=== PATIENT | female | born 1995 | race American Indian/Alaskan Native ===

== ENCOUNTER 2017-07-07 18:26 | Inpatient (IN) | payer MEDICAID ==
[2017-07-07] MEDS ORDERED: Ondansetron 4 MG/2 ML SDV IV PRN (19:11)
[2017-07-07] MEDS ORDERED: Methylergonovine 0.2 MG/1 ML Amp IM PRN (19:11)
[2017-07-07] MEDS ORDERED: Carboprost Tromethamine 250 MCG/1 ML Amp IM PRN (19:11)
[2017-07-07] MEDS ORDERED: Acetaminophen 325 MG Tab PO PRN (19:11)
[2017-07-07] MEDS ORDERED: Misoprostol 400 MCG (4 X 100 MCG TAB) RECTAL PRN (19:11)
[2017-07-07] MEDS ORDERED: fentaNYL 100 MCG/2 ML SDV IVPUSH PRN (19:11)
[2017-07-07] MEDS ORDERED: Sodium Chloride 0.9% 10 ML Syringe FLUSH PRN (19:11)
[2017-07-07] MEDS ORDERED: Lidocaine 1% 30 ML SDV INJECT PRN (19:11)
[2017-07-07] MEDS ORDERED: Lactated Ringers 500 ML IV ONE (19:11)
[2017-07-07] MEDS: Lactated Ringers 1,000 ML IV SCH ×2 (19:20→20:32)
[2017-07-07] MEDS ORDERED: Oxytocin/Normal Saline 30 UNIT/500 ML BAG IV SCH (21:15)
--- NOTE | 2017-07-07 21:45 | PCM.SN ---
- Free Text/Narrative Note: Intrathecal. Sitting position, sterile prep and drape. 1 % lidocaine w bicarb for skin wheal to L3 L4 interspace x 2. Introducer x 2. Pos CSF, neg heme, neg parasthesia. 15 mcg PF sufenta, 35 mcg PF fentanyl, 0.4 ml PF NS and 6 mg of 0.75 % PF bupivacaine injected after CSF aspiration. Pt to L lateral position. Procedure time 2104 to 2129
[2017-07-07] MEDS ORDERED: Simethicone 80 MG Tab.Chew PO PRN (23:04)
[2017-07-07] MEDS ORDERED: Docusate Sodium 100 MG Cap PO PRN (23:04)
[2017-07-07] MEDS ORDERED: Benzocaine/Menthol 20%-0.5% Spray 56 GM Canister TOP PRN (23:04)
[2017-07-07] MEDS ORDERED: Promethazine 25 MG/ML SDV IM PRN (23:29)
--- NOTE | 2017-07-07 23:44 | DEL ---
DATE: 07/07/2017 PREPROCEDURE DIAGNOSES: 1. A 36 and 4/7 weeks' gestation via LMP and 20-week ultrasound. 2. 4, para 0-2-1-2. 3. High-risk . 4. History of severe preeclampsia 2 prior pregnancies with deliveries including one complicated by placental abruption. 5. History of miscarriage. 6. History of ectopic with salpingectomy. 7. Anemia of . 8. Protein malnutrition. 9. Short interval . 10.Second trimester complicated by bacterial vaginosis, urinary tract infection, and vaginal bleeding. 11.High tone pelvic floor dysfunction. 12.Blood type O positive, rubella immune, and group B strep negative. POSTPROCEDURE DIAGNOSES: 1. A 36 and 4/7 weeks' gestation via LMP and 20-week ultrasound. 2. 4, now para 0-3-1-3. 3. High-risk . 4. History of severe preeclampsia 2 prior pregnancies with deliveries including one complicated by placental abruption. 5. History of miscarriage. 6. History of ectopic with salpingectomy. 7. Anemia of . 8. Protein malnutrition. 9. Short interval . 10.Second trimester complicated by bacterial vaginosis, urinary tract infection, and vaginal bleeding. 11.High tone pelvic floor dysfunction. 12.Blood type O positive, rubella immune, and group B strep negative. 13.Status post spontaneous vaginal delivery with superficial bilateral anterior lacerations. BRIEF HISTORY: A 22-year-old female, admitted to the hospital on day of delivery after presenting with spontaneous onset of labor at 10:00 a.m. started having regular contractions at 5:00 a.m., they became painful and closer together and then she presented after 7:00 for evaluation. Labor continued to progress without any augmentation and an intrathecal was provided for anesthesia at 8+ cm of dilatation. After that, artificial rupture of membranes was performed and once complete, she pushed for only a couple of contractions and had her delivery. Laboratory testing and blood pressure criteria were not met for preeclampsia with this . She was noted to be on aspirin for preventative measures. PROCEDURE IN DETAIL: The patient in dorsal lithotomy position, she delivered a viable male infant over an intact perineum. Infant was dried and stimulated. Pocket of fluid in the cheek was suctioned out with bulb suction. Three-vessel umbilical cord was then doubly clamped and cut and baby was taken to the warmer for further evaluation. Cord blood sample was obtained and then placenta delivered by gentle cord traction and concomitant uterine massage, inspected and intact. Gross appearance consistent with 36+ weeks' gestation. Inspection of labia and vagina showed a superficial posterior tear of just the keratinized skin and did not go any deeper. There were bilateral anterior lacerations that were hemostatic and did not need repair. They were quite small. DISPOSITION: Mother and baby to stay in the room at this time so they could start bonding. ESTIMATED BLOOD LOSS: 350 mL. COMPLICATIONS: None. FINDINGS: Viable male infant. scores of 8 and 9. Weight 3465 grams, 7# 10oz. Length 19.5. [facility] /[id number] MTDTala
--- NOTE | 2017-07-08 01:02 | HP ---
CHIEF COMPLAINT: Increased worsening frequency of contractions and leakage of fluid. HISTORY OF PRESENT ILLNESS: A 22-year-old 4, para 0-2-1-2. The patient with a complaint of mitch every 3-1/2 to 4 minutes since approximately 10:00 this morning. Also noticed some pink, watery discharge when she wiped. Has not soaked to her underwear but reports that they have been damp. Tells us that at about 5:00 this evening, contractions got worse and she started feeling them more into her back. They have not gotten any e mail system administrator. She denies any obvious symptoms of preeclampsia other than the shortness of breath that she has been complaining of for a couple of weeks. Denies any other specific complaints at this time. HISTORY: 1. Delivered on 06/06/2013, 36-week gestation, female infant, vaginal delivery, named Benjamin Nicole. Weight 2659 g under epidural for anesthesia. scores of 8 and 8, approximately 7 hours of stage I. She was in induction of labor for severe preeclampsia and had been transferred from [place] to [place] and delivered by Dr. Fernandez. 2. Delivered in 2014, ectopic requiring surgery for resolution. 3. Delivered 08/03/2016 at 32 weeks 6 days' gestation, male infant, delivered vaginally. His name is Karlos Nicole. weight 2120 g. Labor complication was placental abruption, also had severe preeclampsia, approximately 8 hours of stage I, estimated in 6 minutes of stage II. scores were 7 and 9. The patient had presented to the hospital at 6 cm dilated and delivered quickly after artificial rupture of membranes as the team was setting up for primary . After delivery, placenta appeared to have about one-sixth of the total space occupied by abruptio. Delivering physician, Dr. Michel. CARE: 1. Blood type is O positive. UDS was negative in [place]. RPR nonreactive. Rubella immune. Hepatitis C and B negative. HIV negative. Gonorrhea and Chlamydia negative. Tdap and flu vaccines were given on 05/05/2017. Group B strep test is negative. 2. Other factors, high-tone pelvic floor dysfunction, treated for bacterial vaginosis at 26 weeks. Diagnosed with protein malnutrition and diagnosed to a lapper and started on Ensure at 26 weeks. Urinary tract infection in the second trimester, treated with nitrofurantoin. She has had a short interval of her pregnancies, vaginal bleeding in the second trimester, and evaluated here at [facility] approximately at 20 weeks. However, the patient left before the entire evaluation was completed. History of labor x2 as outlined above. Prior deliveries were early because of preeclampsia complications and not inherent labor. Therefore, cervical length ultrasounds and hydroxyprogesterone were not indicated. History of ectopic . PAST MEDICAL HISTORY: Body piercing, severe preeclampsia. PAST SURGICAL HISTORY: Ectopic treated with laparoscopic salpingectomy. FAMILY HISTORY: Mother alive and well. Father with diabetes, hypertension. Sister and brother each with autism. A sister with ADHD and 2 sisters are alive and well and another sister with autism. Maternal grandparents are not known to her. Paternal grandmother has no known diseases and paternal grandfather has had stroke and heart disease. Negative family history for defects, anesthesia problems, bleeding problems, clotting disorders, multiple births, cystic fibrosis and seizures. SOCIAL HISTORY: The patient is single. She is a former smoker and quit in 2011. History of alcohol use in the past and was hospitalized once for alcohol intoxication. She is now expecting baby #3 with her boyfriend, Senior Jewel. He is not working. Andie is going to school to get her GED. They live with Karlos's mother and her children. Karlos's mother smokes inside the home. REVIEW OF SYSTEMS: Denies any chest pain, headaches, blurry vision, right upper quadrant pain, acute change in her swelling, numbness, tingling, fever, chills, diarrhea, constipation, or dysuria. PHYSICAL EXAMINATION: Vital Signs: Can be reviewed on the monitoring strip. HEENT: Grossly unremarkable. Heart: Regular without obvious murmur. Lungs: Clear to auscultation bilaterally. Abdomen: Gravid, soft, and nontender. Fundal height consistent with dates. Butters is showing baseline heart tones. monitoring strip is category 1 tracing. Butters shows contractions approximately every 2 to 3 minutes. Cervix is 5 to 6 cm dilated, 90% effaced, midpositioned, mushy with consistency. Bag of water is intact. Extremities: Trace edema. No erythema or tenderness noted. Neurological: No focal deficits. LABORATORY DATA: No labs resulted as of yet. ASSESSMENT: 1. labor in a 4, para 0-2-1-2 at 36 and 4/7 weeks' gestation. 2. History of severe preeclampsia prior to pregnancies. 3. Protein malnutrition. 4. History of ectopic . 5. Generally high-risk . 6. Anemia of . 7. Short interval between pregnancies. 8. History of vaginal bleeding in the second trimester. 9. Urinary tract infection in the second trimester. 10.Bacterial vaginosis in the late second trimester. 11.High-tone pelvic floor dysfunction. PLAN: The patient will be admitted to Labor and Delivery. Hopefully, she will be able to get an intrathecal for anesthesia; however, we are getting ready to go to the operating room with an acute case, and the patient will need to wait until anesthesia is available. I anticipate vaginal delivery as she has had in the past. We will continue to also monitor for any signs and symptoms of preeclampsia. The patient is agreeable with the plan and aware that she is at increased risk because she is . Her questions were answered and she is agreeing to proceed. [facility] /[id number] GEO
--- NOTE | 2017-07-08 08:31 | PN ---
DATE: 07/08/2017 SUBJECTIVE: day #1, 22-year-old 4, now para 0-3-1-3, spontaneous vaginal delivery just before midnight last night without complications. Reports that she has been doing well since the time of delivery. Saddle block has worn off, and she has been up to go to the bathroom and that went well and voiding without difficulties. Not yet had a bowel movement. No chest pain or shortness of breath. Continues to complain of itching from the intrathecal, but no preeclamptic symptoms are reported. Bleeding is as would be expected. Denies significant cramping. Reports that she wants to try , but has not been making very much effort at that yet. OBJECTIVE: Vital Signs: Pulse of 75, blood pressure 133/74, and respiratory rate of 16. Heart: Regular without obvious murmur. Lungs: Clear to auscultation bilaterally. Abdomen: Soft and nontender. Fundus is firm and below the umbilicus. Extremities: Trace to no edema. No erythema or tenderness noted. Neurological: No focal deficits. ASSESSMENT: 1. day #1, status post uncomplicated vaginal delivery. 2. History of severe preeclampsia with 2 prior pregnancies, not diagnosed this , and was on aspirin for prophylaxis. 3. Anemia of . 4. Short interval . 5. Protein malnutrition. PLAN: Anticipate at this time to continue normal cares and monitoring for signs and symptoms for development of preeclampsia . Discussed with the patient that her son will need to stay in the hospital probably at least until 48 hours of age due to prematurity status, and anticipate that she will be staying through that time as well. Advised that Dr. Jo will be following her through discharge, and I will see her next week in the office for blood pressure recheck when she brings her son in for a well- child check. [facility] /[id number]
[2017-07-08] MEDS: Prenatal Multivitamin with Calcium/Folic Acid/Iron Tab PO SCH (09:39)
[2017-07-08] MEDS: Ibuprofen 800 MG Tab PO PRN ×2 (14:28→23:13)
[2017-07-08] MEDS ORDERED: fentaNYL 100 MCG/2 ML SDV ITHECAL ONE (16:15)
[2017-07-08] MEDS: Ferrous Sulfate 325 MG Tab PO SCH (19:22)
[2017-07-09 08:27] VITALS: BP 118/71
--- NOTE | 2017-07-09 10:07 | PCM.PNPP ---
- General Info Date of Service: 07/09/17 (PPD # 2 S/P ) Functional Status: Reports: Pain Controlled, Tolerating Diet, Ambulating, Urinating - Review of Systems General: Reports: No Symptoms HEENT: Reports: No Symptoms Pulmonary: Reports: No Symptoms Cardiovascular: Reports: No Symptoms Gastrointestinal: Reports: No Symptoms Genitourinary: Reports: No Symptoms Musculoskeletal: Reports: No Symptoms Skin: Reports: No Symptoms Neurological: Reports: No Symptoms Psychiatric: Reports: No Symptoms - General Info Date of Service: 07/09/17 (PPD # 2 S/P ) - Patient Data Vital Signs - Most Recent: Last Vital Signs Temp 97.6 F 07/09/17 08:00 Pulse 84 07/09/17 08:00 Resp 18 07/09/17 08:00 BP 118/71 07/09/17 08:00 Pulse Ox 99 07/09/17 08:00 Weight - Most Recent: 176 lb I&O - Last 24 Hours: Intake & Output 07/08/17 07/09/17 07/09/17 22:59 06:59 14:59 Intake Total 500 Balance 500 Med Orders - Current: Current Medications Acetaminophen (Tylenol) 650 mg PO Q4H PRN PRN Reason: Pain (Mild 1-3) and fever Benzocaine/Menthol (Dermoplast Pain Relief [place]) 0 gm TOP Q4H PRN PRN Reason: Perineal comfort measures Docusate Sodium (Colace) 100 mg PO BID PRN PRN Reason: Constipation Last Admin: 07/08/17 14:27 Dose: 100 mg Ferrous Sulfate (Ferrous Sulfate) 325 mg PO BIDMEALS AMINA Last Admin: 07/08/17 19:22 Dose: 325 mg Oxytocin/Sodium Chloride (Pitocin In Ns 30 Unit/500 Ml) 30 unit in 500 mls @ 500 mls/hr IV TITRATE AMINA; 500 MUNITS/MIN PRN Reason: Protocol Last Titration: 07/08/17 01:46 Dose: 0 mls/hr Ibuprofen (Motrin) 800 mg PO Q8H PRN PRN Reason: Mild Pain or Fever Last Admin: 07/08/17 23:13 Dose: 800 mg Methylergonovine Maleate (Methergine) 0.2 mg IM ASDIRECTED PRN PRN Reason: Hemorrhage Misoprostol (Cytotec) 800 mcg RECTAL ASDIRECTED PRN PRN Reason: Hemorrhage Ondansetron HCl (Zofran) 4 mg IV Q4H PRN PRN Reason: Nausea/Vomiting Last Admin: 07/07/17 21:10 Dose: 4 mg Prenat Multivit/Talty/Iron/Folic Ac ( Plus Iron) 1 each PO DAILY AMINA Last Admin: 07/08/17 09:39 Dose: 1 each Promethazine HCl (Phenergan) 25 mg IM Q6H PRN PRN Reason: Nausea Last Admin: 07/07/17 23:52 Dose: 25 mg Simethicone (Simethicone) 80 mg PO Q4H PRN PRN Reason: Gas Discontinued Medications Carboprost Tromethamine (Hemabate Ds) 250 mcg IM ASDIRECTED PRN PRN Reason: HEMORRHAGE Fentanyl (Sublimaze) 50 mcg IVPUSH Q1H PRN PRN Reason: Pain (moderate 4-6) Fentanyl (Sublimaze) 35 mcg ITHECAL .STK-MED ONE Stop: 07/08/17 16:16 Lactated Ringer's (Ringers, Lactated) 500 mls @ 999 mls/hr IV .BOLUS ONE Stop: 07/07/17 19:41 Last Admin: 07/08/17 04:02 Dose: Not Given Lactated Ringer's (Ringers, Lactated) 1,000 mls @ 125 mls/hr IV ASDIRECTED [facility] Last Admin: 07/07/17 20:32 Dose: 125 mls/hr Lidocaine HCl (Xylocaine-Mpf 1%) 10 ml INJECT ASDIRECTED PRN PRN Reason: Perineal Repair Sodium Bicarbonate (Sodium Bicarbonate 4.2%) Confirm Administered Dose 5 meq .ROUTE .STK-MED ONE Stop: 07/07/17 21:09 Last Admin: 07/08/17 04:03 Dose: Not Given Sodium Chloride (Saline Flush) 10 ml FLUSH ASDIRECTED PRN PRN Reason: Keep Vein Open Sufentanil Citrate (Sufenta) Confirm Administered Dose 50 mcg .ROUTE .STK-MED ONE Stop: 07/07/17 21:09 Last Admin: 07/08/17 04:03 Dose: Not Given Sufentanil Citrate (Sufenta) 15 mcg ITHECAL .STK-MED ONE Stop: 07/08/17 16:16 - Interaction Disposition, : in Room with Family Infant Interaction: Holding Infant Infant Feeding: Bottle Fed Support Person: Significant Other - Recovery Exam Fundal Tone: Firm Fundal Level: 2 Fingerbreadths Below Umbilicus Fundal Placement: Midline Lochia Amount: Small Lochia Color: Rubra/Red Perineum Description: Intact, Minimal Bruising/Swelling Episiotomy/Laceration: None Bladder Status: Voiding - Exam General: Alert, Oriented, Cooperative, No Acute Distress HEENT: Pupils Equal, Pupils Reactive Neck: Supple Lungs: Clear to Auscultation, Normal Respiratory Effort Cardiovascular: Regular Rate, Regular Rhythm, No Murmurs GI/Abdominal Exam: Normal Bowel Sounds, Soft, Non-Tender Extremities: Normal Inspection, Normal Range of Motion, Non-Tender Skin: Warm, Dry, Intact Neurological: No New Focal Deficit, Normal Gait, Normal Speech Psy/Mental Status: Alert, Normal Affect, Normal Mood - Problem List Review Problem List Initiated/Reviewed/Updated: Yes - Assessment Assessment:: PPD # 2 S/P Doing well - Plan Plan:: Discharge to home Follow-up next week with Dr. Adan then at 6 week check-up Motrin 800 mg 1 tab tid po prn
[2017-07-09] MEDS: Prenatal Multivitamin with Calcium/Folic Acid/Iron Tab PO SCH (10:46)
[2017-07-09] MEDS: Ferrous Sulfate 325 MG Tab PO SCH ×2 (10:46→19:21)
--- NOTE | 2017-07-10 02:14 | DISCH ---
INDICATION FOR ADMISSION: Ms. He is a 22-year-old 4, para 0-2-1-2 female, who reported to Labor and Delivery in active labor at 36-4/7 weeks' gestation. She had a high-risk because she has had previous severe preeclampsia and 2 previous deliveries with a placental abruption in the past. She tolerated her labor quite well. Once she got uncomfortable, intrathecal anesthesia was obtained, and then artificial rupture of membranes occurred, and when she was complete, she had a normal spontaneous vaginal delivery of a viable male weighing 7 pounds 10 ounces with scores of 8 at 1 minute and 9 at 5 minutes and 19-1/2 inches long. She had small abrasions. She recovered for 2 hours. The went to the nursery. No complications occurred throughout her hospital stay. She was afebrile. Vital signs were stable. She tolerated her diet well and ambulated quite well. She was discharged to home on day #2. LABORATORY AND DIAGNOSTIC STUDIES: 07/07/2017; WBC 14.4, hemoglobin 8.6, hematocrit 29.2, and platelet count 206,000. 07/08/2017; WBC 23.3, hemoglobin 8.3, hematocrit 28.2, and platelet count 195,000. DISCHARGE INSTRUCTIONS: 1. Discharged to home. 2. Follow up with Dr. Anand Carroll next week and then at 6-week checkup. 3. Ibuprofen p.r.n. for discomfort. 4. No douching, tampons, or intercourse for 6 weeks. Discharge instructions including activity, followup, medications, diet, and wound care were discussed with the patient. She understands these and is willing to comply with these. DISCHARGE DIAGNOSES: 1. 36-4/7 weeks' intrauterine . 2. Active labor. 3. Artificial rupture of membranes. 4. Normal spontaneous vaginal delivery of a viable male weighing 7 pounds 10 ounces, 19-1/2 inches long with scores of 8 at 1 minute and 9 at 5 minutes. 5. Intrathecal anesthesia. 6. Chronic anemia of . [facility] /[id number]
== END 2017-07-09 21:15 | disposition home or self-care (01) | DRG 775 ==
LOC: DL.OBCHECK 18:26 → DL.OB 19:14 → OBSVTOIN 22:52 → DL.MS 07-08 14:11
PROVIDERS: ADMIT Family Medicine; ATTEND Family Medicine
PROC: 10E0XZZ Delivery of Products of Conception, External Approach (ICD-10-PCS; principal; 2017-07-07)
PROC: 10907ZC Drainage of Amniotic Fluid, Therapeutic from Products of Conception, Via Natural or Artificial Opening (ICD-10-PCS; 2017-07-07)
PROC: 00HU33Z Insertion of Infusion Device into Spinal Canal, Percutaneous Approach (ICD-10-PCS; 2017-07-07)
PROC: 3E0R3BZ Introduction of Anesthetic Agent into Spinal Canal, Percutaneous Approach (ICD-10-PCS; 2017-07-07)
DX: O99.02 Anemia complicating childbirth (principal); Z37.0 Single live birth; D64.9 Anemia, unspecified; Z3A.37 37 weeks gestation of pregnancy
CPT/HCPCS: 01967; 36415; 51701; 59409; 82565; 83615; 84450; 84460; 84520; 84550; 85027; A9270-GY; J2405; J2550; J2590; J3010; J7120

== ENCOUNTER 2019-01-17 10:18 | Inpatient (IN) | payer MEDICAID ==
[2019-01-17] MEDS ORDERED: Ondansetron 4 MG/2 ML SDV IV PRN (13:55)
[2019-01-17] MEDS ORDERED: Misoprostol 400 MCG (4 X 100 MCG TAB) RECTAL PRN (13:55)
[2019-01-17] MEDS ORDERED: Lidocaine 1% 30 ML SDV INJECT PRN (13:55)
[2019-01-17] MEDS ORDERED: Methylergonovine 0.2 MG/1 ML Amp IM PRN (13:55)
[2019-01-17] MEDS ORDERED: Tranexamic Acid 1,000 MG in Sodium Chloride 0.9% 100 ML IV PRN (13:55)
[2019-01-17] MEDS ORDERED: Lactated Ringers 500 ML IV ONE (13:55)
[2019-01-17] MEDS ORDERED: Carboprost Tromethamine 250 MCG/1 ML Amp IM PRN (13:55)
[2019-01-17] MEDS ORDERED: Sodium Chloride 0.9% 10 ML Syringe FLUSH PRN (13:55)
[2019-01-17] MEDS ORDERED: Oxytocin/Normal Saline 30 UNIT/500 ML BAG IV SCH (14:00)
[2019-01-17] MEDS ORDERED: Nalbuphine 10 MG/1 ML Vial IM PRN (14:01)
[2019-01-17] MEDS ORDERED: Misoprostol 50 MCG (1/2 of 100 MCG) Tab VAG ONE (14:19)
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
[2019-01-17] MEDS: Lactated Ringers 1,000 ML IV SCH ×2 (18:05→23:09)
[2019-01-17] MEDS ORDERED: hydrOXYzine HCl 25 MG Tab PO ONE (21:33)
--- NOTE | 2019-01-17 21:33 | PCM.PNLD ---
<Kate Chandler - Last Filed: 01/17/19 21:29> Labor Progress Note - VS & Meds Vital Signs: Last Vital Signs Temp 98.5 F 01/17/19 19:00 Pulse 68 01/17/19 19:00 Resp 16 01/17/19 19:00 BP 147/84 H 01/17/19 19:00 Pulse Ox Active Medications: Current Medications Acetaminophen (Tylenol) 650 mg PO Q4H PRN PRN Reason: Pain (Mild 1-3) and fever Carboprost Tromethamine (Hemabate Ds) 250 mcg IM ASDIRECTED PRN PRN Reason: HEMORRHAGE Lactated Ringer's (Ringers, Lactated) 1,000 mls @ 125 mls/hr IV ASDIRECTED AMINA Last Admin: 01/17/19 18:05 Dose: 125 mls/hr Oxytocin/Sodium Chloride (Pitocin In Ns 30 Unit/500 Ml) 30 unit in 500 mls @ 2 mls/hr IV TITRATE AMINA; Protocol Tranexamic Acid 1,000 mg/ (Sodium Chloride) 110 mls @ 660 mls/hr IV ONETIME PRN PRN Reason: Bleeding Lidocaine HCl (Xylocaine-Mpf 1%) 30 ml INJECT ASDIRECTED PRN PRN Reason: Perineal Repair Methylergonovine Maleate (Methergine) 0.2 mg IM ASDIRECTED PRN PRN Reason: Hemorrhage Misoprostol (Cytotec) 800 mcg RECTAL ASDIRECTED PRN PRN Reason: Hemorrhage Nalbuphine HCl (Nubain) 20 mg IM ONETIME PRN PRN Reason: Pain Ondansetron HCl (Zofran) 4 mg IV Q4H PRN PRN Reason: Nausea/Vomiting Sodium Chloride (Saline Flush) 10 ml FLUSH ASDIRECTED PRN PRN Reason: Keep Vein Open Discontinued Medications Lactated Ringer's (Ringers, Lactated) 500 mls @ 999 mls/hr IV .BOLUS ONE Stop: 01/17/19 14:25 Misoprostol (Cytotec) 50 mcg VAG ONETIME ONE Stop: 01/17/19 14:20 Last Admin: 01/17/19 14:30 Dose: 50 mcg - Uterine Contractions Uterine Monitoring Mode: External [place] Contraction Frequency (min): 1.5-2 Contraction Duration (sec): 60-80 Contraction Intensity: Mild to Moderate Uterine Resting Tone: Soft - Monitoring Heart Rate (FHR) Baseline: 130 Heart Rate (FHR) Variability: Moderate (6-25 bmp) Accelerations: Present, 15x15 Decelerations: None Strip Review: Category I - Vaginal Exam Dilation (cm): 2 Effacement (Percent): 50 Station: -2 Cervical Position: Posterior Sterile Vaginal Exam Performed By: Kate Chandler - Labor Progress (Free Text) Labor Progress: Patient mitch now every 1-1.5 minutes for past 2hrs. She has made 0.5cm change with slight thinning from 25 to 50%. Station remains -2. She is getting more uncomfortable and breathing through them. She has not requested any pain medications. Due to tachysystole and history of abruption will trial dose of visatril to try to allow patient to relax and hopefully assist her cervix to dilated. Encouraged to walk and to sit/bounce on ball. Head and cervix not in adequate position to AROM at this time to augment labor either. Will recheck cervix in 2hrs. Dr. Chandler <Yamel Wong - Last Filed: 01/17/19 21:46> Labor Progress Note - VS & Meds Vital Signs: Last Vital Signs Temp 98.5 F 01/17/19 19:00 Pulse 76 01/17/19 20:30 Resp 18 01/17/19 20:30 BP 135/85 01/17/19 20:30 Pulse Ox Active Medications: Current Medications Acetaminophen (Tylenol) 650 mg PO Q4H PRN PRN Reason: Pain (Mild 1-3) and fever Carboprost Tromethamine (Hemabate Ds) 250 mcg IM ASDIRECTED PRN PRN Reason: HEMORRHAGE Lactated Ringer's (Ringers, Lactated) 1,000 mls @ 125 mls/hr IV ASDIRECTED AMINA Last Admin: 01/17/19 18:05 Dose: 125 mls/hr Oxytocin/Sodium Chloride (Pitocin In Ns 30 Unit/500 Ml) 30 unit in 500 mls @ 2 mls/hr IV TITRATE AMINA; Protocol Tranexamic Acid 1,000 mg/ (Sodium Chloride) 110 mls @ 660 mls/hr IV ONETIME PRN PRN Reason: Bleeding Lidocaine HCl (Xylocaine-Mpf 1%) 30 ml INJECT ASDIRECTED PRN PRN Reason: Perineal Repair Methylergonovine Maleate (Methergine) 0.2 mg IM ASDIRECTED PRN PRN Reason: Hemorrhage Misoprostol (Cytotec) 800 mcg RECTAL ASDIRECTED PRN PRN Reason: Hemorrhage Nalbuphine HCl (Nubain) 20 mg IM ONETIME PRN PRN Reason: Pain Ondansetron HCl (Zofran) 4 mg IV Q4H PRN PRN Reason: Nausea/Vomiting Sodium Chloride (Saline Flush) 10 ml FLUSH ASDIRECTED PRN PRN Reason: Keep Vein Open Discontinued Medications Hydroxyzine HCl (Atarax) 50 mg PO ONETIME ONE Stop: 01/17/19 21:34 Lactated Ringer's (Ringers, Lactated) 500 mls @ 999 mls/hr IV .BOLUS ONE Stop: 01/17/19 14:25 Misoprostol (Cytotec) 50 mcg VAG ONETIME ONE Stop: 01/17/19 14:20 Last Admin: 01/17/19 14:30 Dose: 50 mcg - Labor Progress (Free Text) Labor Progress: Case managment reviewed with Dr. Benavidez, PGY3. Agree with assessment and plan as outlined. -substitute bus driver 01/17/19 3905.
[2019-01-17] MEDS ORDERED: fentaNYL 100 MCG/2 ML SDV ONE (23:16)
[2019-01-17] MEDS ORDERED: EPINEPHrine 1 MG/ML SDV ONE (23:16)
--- NOTE | 2019-01-17 23:50 | PCM.PRNOTE ---
- Free Text/Narrative Note: Requested to provide analgesia to full term patient in severe pain. Upon entering the room, patient is sitting on edge of bed complaining of severe abdominal/pelvic pain and discomfort. Procedure was discussed with patient including adverse outcomes and expectations. Pt consented to analgesia, SAB/ IT. Pt placed into a proper sitting position. Landmarks for SAB/IT were identified and marked. Hands were washed and appropriate PPE was applied. Back was prepped with betadine x3. A sterile, transparent, fenestrated drape was applied. Excess betadine was removed. Using 3 mL of a 1% lidocaine solution , a skin wheel was placed at the L2/L3 interspace. A 24 ga (4 inch) Pencan spinal needle was inserted until positive for CSF. Negative for heme or paresthesias. Injected fentanyl 30 mcg, sufentanil 25 mcg, and 7.5 mg of a 0.75 % bupivacaine solution with an epi wash. Pt was placed left lateral position for approximately 20 minutes. There were zero complications or adverse outcomes. Will continue to monitor. Procedure Date & Time: 01/17/19 [id number]
[2019-01-18] MEDS ORDERED: Zolpidem 5 MG Tab PO PRN
[2019-01-18] MEDS ORDERED: Simethicone 80 MG Tab.Chew PO PRN
[2019-01-18] MEDS ORDERED: Acetaminophen 325 MG Tab PO PRN
[2019-01-18] MEDS ORDERED: Misoprostol 400 MCG (4 X 100 MCG TAB) RECTAL PRN
[2019-01-18] MEDS ORDERED: Tranexamic Acid 1,000 MG in Sodium Chloride 0.9% 100 ML IV PRN ×2
[2019-01-18] MEDS ORDERED: Carboprost Tromethamine 250 MCG/1 ML Amp IM PRN
[2019-01-18] MEDS ORDERED: Benzocaine/Menthol 20%-0.5% Spray 56 GM Canister TOP PRN
[2019-01-18] MEDS ORDERED: Sodium Chloride 0.9% 10 ML Syringe FLUSH PRN
[2019-01-18] MEDS ORDERED: Oxytocin 10 Units/1 ML SDV IM PRN
--- NOTE | 2019-01-18 01:38 | PCM.SN ---
<Kate Chandler - Last Filed: 01/18/19 01:16> - Free Text/Narrative Note: Delivery Summary: Andie He a 23 year old GBS negative at 37s4d was admitted 01/17/2019 for induction of labor for mild pre-eclampsia in setting of limited/late care (5 visits), anemia of , high risk social situation (homeless, single mom), hx pre-eclampsia, hx placenta abruption, hx of delivery. Patient with reports of headaches, swelling in hands and feet and elevated PCR 0.5. Other pre-eclampsia labs wnl with normal platelet count and liver function. Blood pressure 124/76 on presentation to labor and delivery floor. Medications during included inconsistent vitamins. FHR 135 baseline with moderate variability, accelerations present, no decelerations, category I on presentation. Cervix was high, long, fingertip and posterior with vertex presentation confirmed with bedside ultrasound. IOL with 50mcg cytotec placement at 1430. Contraction frequency every 1-2 minutes achieved with cervical change 1.5cm/25%/-2 at 4hr recheck. Patient uncomfortable with contractions every 1-2 minutes. Recheck cervix 2hrs later with 2cm/50%/-2 and more uncomfortable breathing through contractions and patient given 50mg atarax for pain relief. Increased pain with bloody show noted 2300 and cervical changed of 4cm+/85% reported. Pain medication requested and intrathecal anesthesia placed at 2325. bradycardia and limited variability noted within 10 minutes of intrathecal placement. Providers notified. Patient on arrival of provider with bulging bag. bradycardia to 60s. AROM with clear fluid and subsequent spontaneous and precipitous vaginal delivery of a viable female infant from occipital anterior position over intact perineum at 2341. Delivery of placenta within 20 seconds of delivery of infant. Intact, but notably dark with small clot present. Placenta sent to pathology. Bulb suction at perineum with cord clamped and infant brought immediately to the warmer for low tone/coloration with stimulation and drying. Spontaneous cry achieved with heart rate 120s, breathing independently, and improved tone/activity. APGARs 7 and 9. Fundal massage with appropriate fundal tone achieved. Estimated blood loss 250ml. Final inspection with small bilateral anterior labial abrasions with hemostasis. No laceration repair required. Mother and doing well. Kate Chandler MD Territory Sales Executive PGY3 <Anand CarrollYamel Jez - Last Filed: 01/23/19 06:39> - Free Text/Narrative Note: Delivery performed personally and note scribed on my behalf by Dr. Chandler. Agree with her note as written. Believe patient was already at risk for placental abruption due to her clinical history. Cytotec initiated contractions she likely then suffered a small abruption which caused the contractions to continue without further intervention. After repositioning for the intrathecal, the placenta is believed to have completely from the uterine wall causing the bradycardia with minimal variability as well as a precipitous delivery. -brusher and shearer 01/23/19 0634
[2019-01-18] MEDS ORDERED: Nalbuphine 10 MG/1 ML Vial IV PRN (02:51)
[2019-01-18] MEDS: Ibuprofen 800 MG Tab PO PRN ×2 (06:19→15:42)
[2019-01-18] MEDS: Acetaminophen 325 MG Tab PO PRN ×3 (06:20→19:35)
--- NOTE | 2019-01-18 07:50 | PCM.SN ---
<Kate Chandler - Last Filed: 01/18/19 07:55> - Free Text/Narrative Note: Obstetrics Progress Note Post Day Number 1 Patient: Andie He [id number] Admit Date: 01/17/19 Today's Date: 01/18/19 Subjective: Andie is ambulating, voiding, tolerating regular diet all without difficulty. She did have some continued itching after delivery in setting of intrathecal, with anesthesia notified. Nalbuphine given with relief and no longer itching this morning. Pain is well controlled with prn OTC tylenol and motrin. She reports her lochia is moderate in degree without clots. She started out breast feeding but switched to formula feeding overnight due to nipple discomfort. Unsure if she desires to continue , but is open to trying again. She has not yet passed gas of had a BM but last BM was shortly before admission yesterday. She denies fever, chills, chest pain, shortness of breath, lower extremity edema or calf tenderness. She has no other complaints. Objective: See sheets. On exam: General: sleeping on initial entrance to the room - alert, well oriented, cooperative, not in distress. Lungs: clear to auscultation bilaterally. Heart: regular rate and rhythm, no murmurs. Abdomen: soft, non-tender, normoactive bowel sounds, fundus firm and below the umbilicus. Lower extremities: non tender, no edema. Assessment/Plan: Patient is stable and comfortable, no acute distress. She is day number (8hrs) one status post spontaneous vaginal delivery. -Mild pre-eclampsia. BP within normal range. -Anemia of - Hgb 10.8 on admission. Estimated blood loss 250ml at delivery. Will plan to repeat tomorrow. Oral iron 325mg daily. -High risk social situation. Social Work/internet project manager consulted to assistance with homelessness and single mom with 3 other young children < 6 years old. -Hx of placenta abruption and concern for abruption this delivery as well given distress with precipitous and delivery of and delivery of placenta within 20 seconds after baby. Broached subjective at time of delivery and again this morning of necessity of future planning with high risk deliveries and history of pre-eclampsia with now suspected 2 placenta abruptions. Patient unclear at this time what she wants. Will need to continue to discuss in follow-up. Continue with advancing routine post cares. Plan for discharge tomorrow at the earliest but pending appropriate discharge planning due to homelessness. Appreciate the assistance of SW/internet project manager. Kate Chandler MD Butadiene Compressor Operator PGY3 <Yamel Wong - Last Filed: 01/23/19 06:45> - Free Text/Narrative Note: Vitals on 01/18/19 Temp 98.7 Fahrenheit, pulse 72, BP 127/80, respiratory rate 16. Patient seen and examined. Agree with note as written by Dr. Chandler. -[facility] 01/23/19 0681
[2019-01-18] MEDS: Prenatal Multivitamin with Calcium/Folic Acid/Iron Tab PO SCH (12:43)
[2019-01-18] MEDS: Docusate Sodium 100 MG Cap PO PRN (19:34)
[2019-01-19] MEDS: Ibuprofen 800 MG Tab PO PRN ×2 (00:05→08:57)
[2019-01-19] MEDS: Docusate Sodium 100 MG Cap PO PRN (08:57)
[2019-01-19] MEDS: Prenatal Multivitamin with Calcium/Folic Acid/Iron Tab PO SCH (08:57)
[2019-01-19 09:19] VITALS: BP 104/85; PULSE 81
[2019-01-19] MEDS ORDERED: fentaNYL 100 MCG/2 ML SDV ITHECAL ONE (11:08)
[2019-01-19] MEDS ORDERED: EPINEPHrine 1 MG/ML SDV ONE (11:08)
--- NOTE | 2019-01-26 11:40 | DISCH ---
ADMITTING DIAGNOSES: 1. 6, para 0-3-2-3, at 37-4/7th weeks' gestation based on 22-week 5- day ultrasound. 2. Mild preeclampsia. 3. Anemia of . 4. History of preeclampsia, history of delivery, history of placental abruption. 5. High-risk social situations including homelessness and single mother. 6. Limited and late care. DISCHARGE DIAGNOSES: 1. 6, now para 1-3-2-4, at 37-4/7th weeks' gestation based on 22-week 5-day ultrasound. 2. Mild preeclampsia. 3. Anemia of . 4. History of preeclampsia, history of delivery, history of placental abruption. 5. High-risk social situations including homelessness and single mother. 6. Limited and late care. 7. Status post vaginal delivery with bilateral labial lacerations that did not need repair. 8. Precipitous delivery and precipitous 3rd stage. 9. bradycardia 7 minutes after intrathecal, likely due to rapid expansion of placental abruption. BRIEF HISTORY: A 23-year-old female, brought into the hospital for induction of labor after having a protein/creatinine ratio of 0.5 and symptoms of preeclampsia despite having normal blood pressures. After being in the hospital, her blood pressures did increase to 141/87, 160/82, 150/77 range on average and she did meet preeclampsia criteria. PIH labs were otherwise negative and done at the clinic on the day prior to admission, not repeated at the time of admission. Induction was with 1 dose of 50 mcg Cytotec that initiated nice regular contractions, which carried out on their own. I suspect that the Cytotec got the contractions started, but then she went on to have a small abruption that then irritated the uterus and kept the contractions going about every 2 minutes. After her intrathecal, she made rapid change and then delivered in only 1 contraction and the placenta came out within 15 seconds of the baby being born. See delivery note and history and physical for full details. HOSPITAL COURSE: After delivery, the patient has done very well. She has been ambulating and tolerating regular diet. Denying any problems with shortness of breath, vaginal bleeding, or discharge. No difficulties with voiding or stooling and will be going to stay with the father of the baby for now while working on a long-term disposition for home. Oil Agent has been actively involved and brought the patient car seat on the day of discharge and will be continuing to help her with further assistance. PROCEDURE PERFORMED: Spontaneous vaginal delivery and intrathecal. DISPOSITION: To her ex-boyfriend's home with the baby. MEDICATIONS: Ibuprofen 800 mg every 8 hours as needed for pain, Tylenol 650 mg every 6 hours as needed for pain, Colace 100 mg twice daily as needed for constipation, and iron 325 mg twice daily. FOLLOWUP: She will be seen in the office within the next 2 days for recheck of blood pressure. INSTRUCTIONS: Routine discharge instructions were provided with special emphasis on monitoring for signs and symptoms of preeclampsia and should any develop or arise, she needs to come into the emergency department or clinic for further evaluation and potential treatment. The patient has had her questions answered and she verbalizes understanding. NICKOLAS /[id number] MTDD
== END 2019-01-19 15:20 | disposition home or self-care (01) | DRG 807 ==
LOC: DL.OB 13:33 → OBSVTOIN 23:41
PROVIDERS: ADMIT Family Medicine; ATTEND Family Medicine
PROC: 10E0XZZ Delivery of Products of Conception, External Approach (ICD-10-PCS; principal; 2019-01-17)
PROC: 3E033VJ Introduction of Other Hormone into Peripheral Vein, Percutaneous Approach (ICD-10-PCS; 2019-01-17)
PROC: 10907ZC Drainage of Amniotic Fluid, Therapeutic from Products of Conception, Via Natural or Artificial Opening (ICD-10-PCS; 2019-01-17)
PROC: 4A1HXCZ Monitoring of Products of Conception, Cardiac Rate, External Approach (ICD-10-PCS; 2019-01-17)
PROC: 3E0R3BZ Introduction of Anesthetic Agent into Spinal Canal, Percutaneous Approach (ICD-10-PCS; 2019-01-17)
PROC: 00HU33Z Insertion of Infusion Device into Spinal Canal, Percutaneous Approach (ICD-10-PCS; 2019-01-17)
DX: O14.04 Mild to moderate pre-eclampsia, complicating childbirth (principal); Z37.0 Single live birth; Z3A.37 37 weeks gestation of pregnancy; O99.02 Anemia complicating childbirth; D64.9 Anemia, unspecified; O71.82 Other specified trauma to perineum and vulva
CPT/HCPCS: 36415; 51701; 59409; 80305-QW; 85027; A9270-GY; J0171; J2300; J2405; J2590; J3010; J7120

== ENCOUNTER 2021-06-07 13:45 | Emergency (ER) | payer MEDICAID ==
[2021-06-07 14:49] VITALS: BP 118/85; PULSE 82
[2021-06-07 16:19] LABS: AMPHETAMINES,URINE NEGATIVE (NEGATIVE); BARBITURATES,URINE NEGATIVE (NEGATIVE); BENZODIAZEPINE,URINE NEGATIVE (NEGATIVE); MDMA (ECSTASY), URINE NEGATIVE (NEGATIVE); METHADONE,URINE NEGATIVE (NEGATIVE); METHAMPHETAMINES,URINE NEGATIVE (NEGATIVE); OPIATES,URINE NEGATIVE (NEGATIVE); OXYCODONE,URINE NEGATIVE (NEGATIVE); PHENCYCLIDINE,URINE NEGATIVE (NEGATIVE); TCA,URINE NEGATIVE (NEGATIVE)
[2021-06-07] MEDS ORDERED: cefTRIAXone 1 GM, Lidocaine 1% 2.1 ML IM ONE ×2 (16:50)
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
[2021-06-10 12:47] LABS: C.TRACHOMATIS BY TMA Negative (Negative); N.GONORRHOEAE BY TMA Negative (Negative)
== END 2021-06-07 17:13 | disposition home or self-care (01) ==
LOC: DL.ED 13:45
DX: O23.41 Unspecified infection of urinary tract in pregnancy, first trimester (principal); N39.0 Urinary tract infection, site not specified; Z3A.01 Less than 8 weeks gestation of pregnancy
CPT/HCPCS: 36415; 80305; 81001; 84702; 85025; 87086; 87088; 87186; 87491; 87563; 87591; 96372; 99284; J0696

== ENCOUNTER 2021-11-12 22:58 | Observation (INO) | payer MEDICAID ==
[2021-11-13 00:05] LABS: AMPHETAMINES,URINE NEGATIVE (NEGATIVE); BARBITURATES,URINE NEGATIVE (NEGATIVE); BENZODIAZEPINE,URINE NEGATIVE (NEGATIVE); MDMA (ECSTASY), URINE NEGATIVE (NEGATIVE); METHADONE,URINE NEGATIVE (NEGATIVE); METHAMPHETAMINES,URINE NEGATIVE (NEGATIVE); OPIATES,URINE NEGATIVE (NEGATIVE); OXYCODONE,URINE NEGATIVE (NEGATIVE); PHENCYCLIDINE,URINE NEGATIVE (NEGATIVE); TCA,URINE NEGATIVE (NEGATIVE)
[2021-11-13 00:09] VITALS: BP 112/68; PULSE 80
[2021-11-13] MEDS ORDERED: Acetaminophen 500 MG Tab PO ONE (00:48)
== END 2021-11-13 01:16 | disposition home or self-care (01) ==
LOC: DL.OB 22:58
PROVIDERS: ATTEND Family Medicine
DX: O99.891 Other specified diseases and conditions complicating pregnancy (principal); R10.9 Unspecified abdominal pain; Z3A.30 30 weeks gestation of pregnancy
CPT/HCPCS: 36415; 80305; 81003; 82565; 82570; 83615; 84156; 84450; 84460; 84520; 84550; 85027; 87210; 87635; A9270; U0002

== ENCOUNTER 2022-01-01 03:18 | Observation (INO) | payer MEDICAID ==
[2022-01-01 10:14] VITALS: PULSE 74
[2022-01-01 13:18] VITALS: BP 117/78
== END 2022-01-01 14:20 | disposition home or self-care (01) ==
LOC: DL.OBCHECK 03:18 → UNDOADMOB 04:38 → DL.MS 04:38
PROVIDERS: ADMIT Family Medicine; ATTEND Family Medicine
DX: O13.3 Gestational [pregnancy-induced] hypertension without significant proteinuria, third trimester (principal); O09.213 Supervision of pregnancy with history of pre-term labor, third trimester; Z3A.35 35 weeks gestation of pregnancy; Z79.899 Other long term (current) drug therapy; Z79.82 Long term (current) use of aspirin
CPT/HCPCS: 36415; 76819; 81003; 82565; 82570; 83615; 84156; 84450; 84460; 84520; 84550; 85027; G0378

== ENCOUNTER 2022-03-27 14:46 | Emergency (ER) | payer MEDICAID | END 2022-03-27 14:50 | disposition left against medical advice (07) | LOC: DL.ED 14:46 | DX: Z53.21 Procedure and treatment not carried out due to patient leaving prior to being seen by health care provider (principal) ==

== ENCOUNTER 2022-08-15 03:40 | Emergency (ER) | payer MEDICAID ==
[2022-08-15] MEDS ORDERED: Sodium Chloride 0.9% 10 ML Syringe FLUSH PRN (03:58)
[2022-08-15] MEDS ORDERED: fentaNYL 100 MCG/2 ML SDV IVPUSH ONE ×2 (03:59→05:56)
[2022-08-15 04:30] LABS: ANION GAP 11.7 mEq/L (7-13); CHLORIDE,CL 106 mmol/L (98-107); SODIUM,NA 141 mmol/L (136-145)
[2022-08-15 04:33] LABS: ESTIMATED GFR 107 mL/min (>=60)
[2022-08-15] MEDS ORDERED: Iopamidol 612 MG/ML 100 ML Bottle IVPUSH ONE (04:50)
[2022-08-15 06:11] VITALS: BP 112/68; PULSE 88
== END 2022-08-15 06:31 | disposition home or self-care (01) ==
LOC: DL.ED 03:40
DX: N83.201 Unspecified ovarian cyst, right side (principal); Z79.82 Long term (current) use of aspirin
CPT/HCPCS: 36415; 74177; 80053; 83690; 84703; 85025; 96374; 96376; 99284; J3010; J3490; Q9967